=== PATIENT | female | born 1965 | race Caucasian/White ===

== ENCOUNTER → 2020-01-21 15:21 | Outpatient (BNVA) | payer OTHER, SELFPAY | PROVIDERS: Family Provider Family Medicine; PCP Nurse Practitioner Family; Referring Provider Family Medicine; Visit Provider Otolaryngology | DX: K13.70 Unspecified lesions of oral mucosa (principal); K21.9 Gastro-esophageal reflux disease without esophagitis | CPT/HCPCS: 99204; 99214 ==

== ENCOUNTER → 2023-03-13 11:01 | Outpatient (BNVA) | payer BC, SELFPAY | PROVIDERS: Family Provider Family Medicine; PCP Nurse Practitioner Family; Referring Provider Nurse Practitioner Family; Visit Provider Specialist | DX: M67.431 Ganglion, right wrist (principal) | CPT/HCPCS: 73110 ==